=== PATIENT | female | born 1970 | race Asian ===

== ENCOUNTER 2016-11-21 23:30 | Outpatient (CLI) | payer OTHER ==
[~2016-11-21 23:30] MED LIST: ALAVERT10 M2 PO; AMBIEN5 MG PO; BUSPIRONE10 MG PO; CITALOPRAM40 MG PO; CLOP75TA2 PO; CONZIP100 MG OR; CYCL10TA35 PO; LEVETIRACETA1000 MG OR; LISI10TA11 PO; MECLIZINE25 MG OR; MELOXICAM7.5 MG OR; METFORMIN ER1000 MG PO; METOPROLOL25 M1 OR; NEURONTIN 100M100 MG OR; PANT40TA PO; PHENYTOIN EX300 MG OR; TOPIRAMATE50 MG OR
== END 2016-11-21 23:33 | disposition short-term general hospital (02) ==
LOC: AMB 23:30
DX: R56.9 Unspecified convulsions (principal); R53.1 Weakness
CPT/HCPCS: A0425; A0427

== ENCOUNTER 2016-11-21 23:36 | Emergency (ER) | payer OTHER ==
[~2016-11-21] VITALS: Ht 160 cm; Wt 102.1 kg
[2016-11-22 00:13] LABS: PLATELET COUNT 169 K/uL (152-353)
[2016-11-22 00:19] LABS: SODIUM 136 mmol/L (136-145)
[2016-11-22 01:37] VITALS: BP 138/89; TEMP 98.2
== END 2016-11-22 01:44 | disposition home or self-care (01) ==
LOC: ED 23:36
DX: R56.9 Unspecified convulsions (principal); R00.0 Tachycardia, unspecified
CPT/HCPCS: 36415; 80053; 80185; 80307; 81000; 83036; 85027; 93005; 99284; G0479

== ENCOUNTER 2016-11-26 11:21 | Emergency (ER) | payer OTHER ==
[~2016-11-26] VITALS: Ht 167.6 cm; Wt 99.8 kg
[2016-11-26 12:52] LABS: PLATELET COUNT 185 K/uL (152-353)
[2016-11-26 12:59] LABS: POTASSIUM 3.6 mmol/L (3.6-5.2); SODIUM 140 mmol/L (136-145)
[2016-11-26 13:34] VITALS: BP 139/71; TEMP 98.6
== END 2016-11-26 13:37 | disposition home or self-care (01) ==
LOC: ED 11:21
DX: S00.03XA Contusion of scalp, initial encounter (principal); S30.0XXA Contusion of lower back and pelvis, initial encounter; W18.39XA Other fall on same level, initial encounter; Y92.098 Other place in other non-institutional residence as the place of occurrence of the external cause
CPT/HCPCS: 36415; 80053; 80307; 85027; 99283; G0479

== ENCOUNTER 2022-01-05 11:32 | Emergency (ER) | payer OTHER ==
[~2022-01-05] VITALS: Ht 167.6 cm; Wt 122.5 kg
[2022-01-05 11:36] VITALS: TEMP 98
[2022-01-05 12:23] VITALS: BP 148/72
== END 2022-01-05 12:23 | disposition home or self-care (01) ==
LOC: ED 11:32
DX: J44.9 Chronic obstructive pulmonary disease, unspecified (principal); F41.8 Other specified anxiety disorders; Z76.0 Encounter for issue of repeat prescription
CPT/HCPCS: 94664; 99282

== ENCOUNTER 2022-01-15 23:25 | Emergency (ER) | payer OTHER ==
[~2022-01-15] VITALS: Ht 167.6 cm; Wt 122.5 kg
[2022-01-15 23:25] VITALS: TEMP 98.8
[2022-01-16 00:34] LABS: POTASSIUM 3.9 mmol/L (3.6-5.2)
[2022-01-16 00:37] LABS: PARTIAL THROMBOPLASTIN TIME 22.1 SECONDS (24.5-33.6)
[2022-01-16 00:57] LABS: PLATELET COUNT 193 K/uL (152-353)
[2022-01-16 03:03] VITALS: BP 158/68
== END 2022-01-16 03:03 | disposition home or self-care (01) ==
LOC: ED 23:25
PROVIDERS: Emergency Medicine
DX: R06.2 Wheezing (principal); J44.0 Chronic obstructive pulmonary disease with (acute) lower respiratory infection; J20.9 Acute bronchitis, unspecified; Z20.822 Contact with and (suspected) exposure to COVID-19; E11.65 Type 2 diabetes mellitus with hyperglycemia; Z79.4 Long term (current) use of insulin
CPT/HCPCS: 80053; 80307; 81002; 81015; 83880; 84484; 85027; 85610; 85730; 87635; 93005; 96365; 99284; J0696; U0003

== ENCOUNTER 2022-02-24 15:37 | Emergency (ER) | payer OTHER ==
[~2022-02-24] VITALS: Ht 167.6 cm; Wt 122.5 kg
[2022-02-24 15:37] VITALS: TEMP 99.2
[2022-02-24 16:11] LABS: PLATELET COUNT 218 K/uL (152-353)
[2022-02-24 16:17] LABS: POTASSIUM 3.6 mmol/L (3.6-5.2)
[2022-02-24 20:05] VITALS: BP 134/68
== END 2022-02-24 20:18 | disposition home or self-care (01) ==
LOC: ED 15:37
PROVIDERS: Family Medicine
DX: R56.9 Unspecified convulsions (principal); K21.9 Gastro-esophageal reflux disease without esophagitis; J45.909 Unspecified asthma, uncomplicated; W18.39XA Other fall on same level, initial encounter; Y92.512 Supermarket, store or market as the place of occurrence of the external cause
CPT/HCPCS: 36415; 80053; 80307; 81002; 82550; 83605; 84484; 85027; 93005; 94664; 96360; 99284

== ENCOUNTER 2022-03-20 14:31 | Emergency (ER) | payer OTHER ==
[~2022-03-20] VITALS: Ht 167.6 cm; Wt 122.5 kg
[2022-03-20 14:31] VITALS: TEMP 98
[2022-03-20 15:16] LABS: PLATELET COUNT 175 K/uL (152-353)
[2022-03-20 15:29] LABS: POTASSIUM 3.5 mmol/L (3.6-5.2)
[2022-03-20 16:15] VITALS: BP 146/80
== END 2022-03-20 17:13 | disposition home or self-care (01) ==
LOC: ED 14:31
PROVIDERS: Emergency Medicine Emergency Medical Services
DX: R07.89 Other chest pain (principal); J20.9 Acute bronchitis, unspecified; Z20.822 Contact with and (suspected) exposure to COVID-19
CPT/HCPCS: 80053; 81002; 84484; 85027; 87502; 87635; 93005; 99284; U0003

== ENCOUNTER 2022-05-17 21:16 | Emergency (ER) | payer OTHER ==
[~2022-05-17] VITALS: Ht 167.6 cm; Wt 117.9 kg
[2022-05-17 21:40] VITALS: TEMP 97.7
[2022-05-17 22:47] LABS: PLATELET COUNT 173 K/uL (152-353)
[2022-05-17 22:54] LABS: POTASSIUM 3.9 mmol/L (3.6-5.2)
[2022-05-17 23:05] LABS: PARTIAL THROMBOPLASTIN TIME 22.5 SECONDS (24.5-33.6)
[2022-05-18 01:17] VITALS: BP 153/96
== END 2022-05-18 01:18 | disposition home or self-care (01) ==
LOC: ED 21:16
PROVIDERS: Family Medicine
DX: R64 Cachexia (principal); R07.89 Other chest pain; R11.0 Nausea
CPT/HCPCS: 36415; 80053; 82550; 84484; 85027; 85610; 85730; 93005; 96372; 99283; J2405

== ENCOUNTER 2022-06-24 19:04 | Emergency (ER) | payer OTHER ==
[~2022-06-24] VITALS: Ht 167.6 cm; Wt 116.1 kg
[2022-06-24 19:57] VITALS: TEMP 98
[2022-06-24 21:51] LABS: PLATELET COUNT 199 K/uL (152-353)
[2022-06-24 21:57] LABS: POTASSIUM 3.5 mmol/L (3.6-5.2)
[2022-06-25 00:20] VITALS: BP 142/75
== END 2022-06-25 00:20 | disposition home or self-care (01) ==
LOC: ED 19:04
PROVIDERS: Emergency Medicine Emergency Medical Services
DX: L03.116 Cellulitis of left lower limb (principal); N28.1 Cyst of kidney, acquired
CPT/HCPCS: 36415; 80053; 80307; 81002; 84484; 85027; 93005; 96360; 96361; 96365; 99282; 99284; J0696

== ENCOUNTER 2022-11-04 14:53 | Inpatient (IN) | payer OTHER ==
[~2022-11-04] VITALS: Ht 167.6 cm; Wt 112.9 kg
[2022-11-04 14:53] VITALS: TEMP 100.7
[2022-11-04 16:00] VITALS: BP 133/74
[2022-11-04 16:24] LABS: POTASSIUM 3.3 mmol/L (3.6-5.2)
[2022-11-04 16:31] LABS: PLATELET COUNT 161 K/uL (152-353)
[2022-11-04 17:00] VITALS: BP 125/71
[2022-11-04 18:00] VITALS: BP 126/72
[2022-11-04 18:45] VITALS: BP 127/69
[2022-11-04 20:49] VITALS: BP 119/77; TEMP 98.2; Ht 167.6 cm; Wt 112.9 kg
[2022-11-05] VITALS (9 sets, daily range): BP systolic 122–171; BP diastolic 57–87; TEMP 99.1–101.1
[2022-11-05 04:45] LABS: POTASSIUM 3.4 mmol/L (3.6-5.2)
[2022-11-05 05:09] LABS: PLATELET COUNT 152 K/uL (152-353)
[2022-11-06 04:00] VITALS: BP 148/80; TEMP 99.2
[2022-11-06 07:26] LABS: PLATELET COUNT 147 K/uL (152-353)
[2022-11-06 07:35] VITALS: BP 147/79; TEMP 100.4
[2022-11-06 07:46] LABS: POTASSIUM 3.9 mmol/L (3.6-5.2)
[2022-11-06 08:31] VITALS: TEMP 98.4
[2022-11-06] MEDS ORDERED: CIPRO500 MG PO (08:59)
[2022-11-06 11:31] VITALS: BP 152/73; TEMP 98.5
[2022-11-06 16:00] VITALS: BP 147/67; TEMP 98.2
[2022-11-06 20:00] VITALS: BP 158/68; TEMP 99.3
[2022-11-07] VITALS: BP 142/69; TEMP 98.7
[2022-11-07 04:00] VITALS: BP 146/58; TEMP 98.6
[2022-11-07 08:00] VITALS: BP 150/88; TEMP 98.8
[2022-11-07] MEDS ORDERED: GABA300C2 PO (10:52)
[2022-11-07] MEDS ORDERED: METO50TA63 PO (10:52)
[2022-11-07] MEDS ORDERED: DULOXETINE HYDR60 MG PO (10:52)
[2022-11-07] MEDS ORDERED: DICYCLOMINE HYD10 MG PO (10:52)
[2022-11-07] MEDS ORDERED: PANTOPRAZOLE 40MG TA PO (10:52)
[2022-11-07] MEDS ORDERED: CITALOPRAM20 MG PO (10:52)
[2022-11-07] MEDS ORDERED: ETOD300C33 PO (10:52)
[2022-11-07] MEDS ORDERED: THIA100T8 PO (10:52)
[2022-11-07] MEDS ORDERED: EDLUAR10 MG SL (10:52)
[2022-11-07] MEDS ORDERED: LEVE500T5 PO ×2 (10:52)
[2022-11-07] MEDS ORDERED: VITAMIN D50000 UNIT PO (10:52)
[2022-11-07] MEDS ORDERED: FENOFIBRATE160 MG PO (10:52)
== END 2022-11-07 11:42 | disposition home or self-care (01) | DRG 690 ==
LOC: ED 14:53 → MED/SURG 18:30
PROVIDERS: ADMIT Emergency Medicine Emergency Medical Services; ATTEND Internal Medicine
DX: N10 Acute pyelonephritis (principal); E27.49 Other adrenocortical insufficiency; G40.802 Other epilepsy, not intractable, without status epilepticus; B96.29 Other Escherichia coli [E. coli] as the cause of diseases classified elsewhere; R00.0 Tachycardia, unspecified; M79.7 Fibromyalgia; F17.210 Nicotine dependence, cigarettes, uncomplicated; E87.6 Hypokalemia; E83.42 Hypomagnesemia; D32.9 Benign neoplasm of meninges, unspecified; E11.65 Type 2 diabetes mellitus with hyperglycemia; R11.0 Nausea
CPT/HCPCS: 36415; 80048; 80053; 81000; 82948; 83735; 84484; 85007; 85008; 85027; 87040; 87077; 87086; 87088; 87185; 87186; 87205; 87502; 87635; 93005; 96361; 96365; 96366; 96372; 96375; 99284; J0696; J1815; J1885; J2405; J3475; U0003

== ENCOUNTER 2023-01-07 07:45 | Emergency (ER) | payer OTHER ==
[~2023-01-07] VITALS: Ht 167.6 cm; Wt 104.3 kg
[~2023-01-07 07:45] MED LIST changes: +CIPRO500 MG PO; +CITALOPRAM20 MG PO; +DICYCLOMINE HYD10 MG PO; +DULOXETINE HYDR60 MG PO; +EDLUAR10 MG SL; +ETOD300C33 PO; +FENOFIBRATE160 MG PO; +GABA300C2 PO; +LEVE500T5 PO; +METO50TA63 PO; +PANTOPRAZOLE 40MG TA PO; +THIA100T8 PO; +VITAMIN D50000 UNIT PO
[2023-01-07 07:50] VITALS: TEMP 97.2
[2023-01-07 08:11] LABS: PLATELET COUNT 215 K/uL (152-353)
[2023-01-07 08:29] LABS: POTASSIUM 3.2 mmol/L (3.6-5.2)
[2023-01-07 11:03] VITALS: BP 159/100
== END 2023-01-07 11:03 | disposition home or self-care (01) ==
LOC: ED 07:45
PROVIDERS: Family Medicine
DX: D32.9 Benign neoplasm of meninges, unspecified (principal); R73.9 Hyperglycemia, unspecified; R53.1 Weakness
CPT/HCPCS: 36415; 80053; 82948; 83735; 84484; 85027; 87635; 93005; 96361; 96365; 96375; 99284; J1815; J3475; U0003

== ENCOUNTER 2023-02-01 14:35 | Observation (INO) | payer OTHER ==
[2023-02-01] VITALS (8 sets, daily range): BP systolic 135–183; BP diastolic 67–112; TEMP 98–98.3; Ht 167.6 cm; Wt 114.8 kg
[~2023-02-01] VITALS: Ht 167.6 cm; Wt 114.8 kg
[~2023-02-01 14:35] MED LIST changes: -AMBIEN5 MG PO; -CYCL10TA35 PO; +CYCLOBENZAPRINE5 MG PO; +GRALISE600 MG PO; -LEVETIRACETA1000 MG OR; -MECLIZINE25 MG OR; +MECLIZINE25 MG PO; -METOPROLOL25 M1 OR; -NEURONTIN 100M100 MG OR; +ZOLPIDEM TARTRATE PO
[2023-02-01 15:01] LABS: PLATELET COUNT 168 K/uL (152-353)
[2023-02-01 15:19] LABS: POTASSIUM 4.3 mmol/L (3.6-5.2)
[2023-02-01] MEDS ORDERED: LEVE500T5 PO (18:43)
[2023-02-01] MEDS ORDERED: BENZONATATE200 MG PO (18:46)
[2023-02-01] MEDS ORDERED: DICYCLOMINE HYD10 MG PO (18:46)
[2023-02-01] MEDS ORDERED: FLONASE AL50 MCG/ACT NAS (18:47)
[2023-02-01] MEDS ORDERED: DULO60CA2 PO (18:47)
[2023-02-01] MEDS ORDERED: PANTOPRAZOLE 40MG TA PO (18:48)
[2023-02-01] MEDS ORDERED: HYDROCORTISONE1 % TOP (18:48)
[2023-02-01] MEDS ORDERED: VITAMIN D50000 UNIT PO (18:49)
[2023-02-01] MEDS ORDERED: DQZATE100 MG PO (18:49)
[2023-02-01] MEDS ORDERED: FENOFIBRATE160 MG PO (18:49)
[2023-02-01] MEDS ORDERED: BASAGLAR K100 UNIT/M SC (18:50)
[2023-02-01] MEDS ORDERED: THIA100T8 PO (18:50)
[2023-02-01] MEDS ORDERED: GENERLAC10 GM/15 M PO (18:52)
[2023-02-01] MEDS ORDERED: ADMELOG SO100 UNIT/M SC (18:54)
[2023-02-02] VITALS (7 sets, daily range): BP systolic 120–172; BP diastolic 72–99; TEMP 97.4–98.4
[2023-02-02 05:32] LABS: PLATELET COUNT 134 K/uL (152-353)
[2023-02-02 05:38] LABS: POTASSIUM 3.2 mmol/L (3.6-5.2)
[2023-02-03] VITALS (7 sets, daily range): BP systolic 135–179; BP diastolic 86–107; TEMP 98.1–99
[2023-02-03 04:23] LABS: POTASSIUM 3.4 mmol/L (3.6-5.2)
[2023-02-03 04:31] LABS: PLATELET COUNT 161 K/uL (152-353)
[2023-02-04 03:56] VITALS: BP 150/88; TEMP 97.4
[2023-02-04 08:00] VITALS: BP 156/84; TEMP 98.1
[2023-02-04 12:00] VITALS: BP 149/79; TEMP 98.2
== END 2023-02-04 15:32 | disposition home or self-care (01) ==
LOC: ED 14:35 → MED/SURG 16:19
PROVIDERS: Family Medicine; ADMIT Nurse Practitioner Family; ATTEND Internal Medicine Endocrinology, Diabetes & Metabolism
DX: G92.8 Other toxic encephalopathy (principal); K76.82 Hepatic encephalopathy; E11.65 Type 2 diabetes mellitus with hyperglycemia; R20.0 Anesthesia of skin; I10 Essential (primary) hypertension; Z86.73 Personal history of transient ischemic attack (TIA), and cerebral infarction without residual deficits; I25.10 Atherosclerotic heart disease of native coronary artery without angina pectoris; G89.4 Chronic pain syndrome; Z91.148 Patient's other noncompliance with medication regimen for other reason; F17.210 Nicotine dependence, cigarettes, uncomplicated
CPT/HCPCS: 80048; 80053; 80061; 80307; 81002; 82140; 82947; 82948; 84484; 85027; 93005; 94760; 96360; 96361; 96372; 99221; 99284; G0378; J1815